=== PATIENT | female | born 1950 | race Caucasian/White ===

== ENCOUNTER → 2017-07-20 | Outpatient (CLI) | payer MEDICARE, OTHER ==
[~2017-07-20] MED LIST: GADOBENATE DIMEGLUMINE 1 ML IV ONE
--- NOTE | 2017-07-20 19:31 | Diagnostic Imaging Report ---
EXAMINATION: MRI of the brain without contrast. HISTORY: Short-term memory loss for many years COMPARISON: None. TECHNIQUE: Sagittal T1 ultrathin slice with coronal and axial reformations; axial DWI, T2, FLAIR, T2 gradient echo. Postcontrast axial and coronal T1 fat sat. Intravenous contrast: 10 mL of MultiHance IMAGE QUALITY: Adequate. FINDINGS: DEMENTIA: Structural lesion: No intra- or extra-axial mass or hematoma. Ventricles: No hydrocephalus. Barclay matter signal intensity: Cortex: Unremarkable. Basal ganglia: Unremarkable. Thalami: Unremarkable. White matter signal intensity: Cerebral: Scattered and mildly confluent periventricular white matter T2 hyperintense foci, likely nonspecific chronic microvascular ischemic changes. Brainstem: Unremarkable. Mamillary bodies/fornices and hippocampi: No atrophy or abnormal signal. Microhemorrhages: None. Atrophy: Global: Symmetric and age-appropriate. Focal: No disproportionate lobar, hippocampal, mesencephalic, pontine, or cerebellar atrophy. Vessels: Expected flow voids present in the major arteries and dural sinuses. Sella: Unremarkable. OTHER: Subarachnoid spaces: No abnormal signal intensity. Foramen magnum: Unremarkable. Skull: Unremarkable. Paranasal / mastoid sinuses: No significant inflammatory disease. IMPRESSION: 1. Mild chronic microvascular ischemic changes. 2. No disproportionate brain atrophy. Signed by: Dr. Glenna Mohr M.D. on 07/20/2017 7:27 PM
== END ==
LOC: CARD 13:57
PROVIDERS: ATTEND Family Medicine
DX: R41.3 Other amnesia (principal)
CPT/HCPCS: 70553; 93880